=== PATIENT | female | born 1955 | race Caucasian/White ===

== ENCOUNTER 2016-09-05 20:50 | Emergency (ER) | payer BC ==
[2016-09-05] MEDS ORDERED: HYDROmorphone* 1 MG/ML 1 ML SYR IV ONE (21:03)
[2016-09-05] MEDS ORDERED: methylPREDNISolone SOD SUCC* 125 MG 2 ML VIAL IV ONE (21:03)
[2016-09-05] MEDS ORDERED: Albuterol/Ipratropium NEB.SOL* Albuterol 2.5 MG/Ipratropium 0.5 MG 3 ML INH ONE ×2 (21:08→22:22)
--- NOTE | 2016-09-05 22:23 | RAD ---
Indication: Shortness of breath. 2 views of the chest including dual energy PA views demonstrates no mediastinal shift. Heart is of normal size and configuration. Nodule in the right mid lung aguilar unchanged from April 24, 2005 and is consistent with a granuloma. IMPRESSION: Nodule right midlung field. This is unchanged from 2005. Lung aguilar are clear.
[2016-09-05] MEDS ORDERED: Clarithromycin TAB* 500 MG PO ONE (22:24)
[2016-09-05] MEDS ORDERED: Benzonatate CAP* 100 MG PO ONE (22:24)
[2016-09-06 00:28] VITALS: BP 158/80
--- NOTE | 2016-09-06 11:27 | ED ---
Charity Humphrey Michael, scribed for Ernesto Mead MD on 09/05/16 at 2104 . Respiratory - HPI Summary HPI Summary: 61 y/o female was BIBA to the ED presenting with a nonproductive cough that started one day ago. The cough is aggravated and alleviated by nothing. She also c/o SOB and denies fever. The pt was seen previously at [facility] on Thursday for a sinus infection and was prescribed Promethazine. At home she has no breathing treatments and the PMHx is significant for PNA and bronchitis. - History of Current Complaint Stated Complaint: COUGH Hx Obtained From: Patient, EMS, Medical Records Onset/Duration: Gradual Onset, Still Present Timing: Intermittent Episodes Lasting: Initial Severity: Moderate Current Severity: Moderate Character: Cough (Nonproductive), Dyspnea at Rest Sputum Amount: None Aggravating Factor(s): Nothing Alleviating Factor(s): Nothing Associated Signs and Symptoms: SOB - Allergy/Home Medications Allergies/Adverse Reactions: Allergies Allergy/AdvReac Type Severity Reaction Status Date / Time Hydrocodone [From Vicodin] Allergy Intermediate nausea/vomi Verified 09/05/16 20 :57 ting PMH/Surg Hx/FS Hx/Imm Hx Endocrine/Hematology History: Denies: Hx Anticoagulant Therapy, Hx Diabetes, Hx Thyroid Disease Cardiovascular History: Reports: Hx Hypertension Denies: Hx Congestive Heart Failure, Hx Deep Vein Thrombosis, Hx Myocardial Infarction, Hx Pacemaker/ICD Respiratory History: Reports: Hx Pneumonia, Other Respiratory Problems/ Disorders - bronchitis Denies: Hx Asthma, Hx Chronic Obstructive Pulmonary Disease (COPD), Hx Lung Cancer, Hx Pulmonary Embolism GI History: Denies: Hx Gall Bladder Disease, Hx Gastrointestinal Bleed, Hx Ulcer, Hx Urosepsis History: Denies: Hx Kidney Stones, Hx Renal Disease Neurological History: Denies: Hx Dementia, Hx Migraine, Hx Seizures, Hx Transient Ischemic Attacks (TIA) Psychiatric History: Denies: Hx Anxiety, Hx Depression, Hx Schizophrenia, Hx Bipolar Disorder - Surgical History Surgery Procedure, Year, and Place: TMJ surgery, lymphadenopathy, hysterectomy, orthopedic surgery to right arm Infectious Disease History: Denies: Hx Clostridium Difficile, Hx Hepatitis, Hx Human Immunodeficiency Virus (HIV), Hx of Known/Suspected MRSA, Hx Shingles, Hx Tuberculosis, Hx Known/ Suspected VRE, Hx Known/Suspected VRSA, History Other Infectious Disease - Family History Known Family History: Positive: Hypertension Negative: Cardiac Disease, Diabetes - Social History Occupation: Retired Lives: Alone Alcohol Use: None Substance Use Type: Reports: None Smoking Status (MU): Current Every Day Smoker Type: Cigarettes Amount Used/How Often: 1/2 ppd Review of Systems Negative: Fever Positive: Shortness Of Breath, Cough All Other Systems Reviewed And Are Negative: Yes Physical Exam Triage Information Reviewed: Yes Vital Signs On Initial Exam: Initial Vitals Temp Pulse Resp BP Pulse Ox 98.8 F 84 24 165/104 91 09/05/16 20:56 09/05/16 20:56 09/05/16 20:56 09/05/16 20:56 09/05/16 20:56 Vital Signs Reviewed: Yes Appearance: Positive: Well-Appearing, No Pain Distress Skin: Positive: Warm, Skin Color Reflects Adequate Perfusion, Dry Head/Face: Positive: Normal Head/Face Inspection Eyes: Positive: Normal ENT: Positive: Normal ENT inspection Neck: Positive: Supple, Nontender Respiratory/Lung Sounds: Positive: Clear to Auscultation, Wheezes - diffusely, Other - increased E/I Cardiovascular: Positive: RRR Abdomen Description: Positive: Nontender, Soft Bowel Sounds: Positive: Present Musculoskeletal: Positive: Normal Neurological: Positive: Normal Psychiatric: Positive: Affect/Mood Appropriate Diagnostics - Vital Signs Vital Signs Temp Pulse Resp BP Pulse Ox 09/06/16 00:01 101 158/80 92 09/06/16 00:00 99.1 F 98 91 09/05/16 23:47 115 90 09/05/16 23:03 76 97 09/05/16 22:28 84 159/100 94 09/05/16 22:00 82 99 09/05/16 21:57 82 20 94 09/05/16 20:56 98.8 F 84 24 165/104 91 - Laboratory Lab Statement: Any lab studies that have been ordered have been reviewed, and results considered in the medical decision making process. - Radiology CXR Xray Interpretation: Positive (See Comments) - Nodule right midlung field. This is unchanged from 2004. Lung aguilar are clear. Radiology Interpretation Completed By: Radiologist Disposition - Course Course Of Treatment: Jagdeep Ramirez presented to the ED with a cough and SOB. She is a smoker and had diffuse wheezing. Her CXR was negative and she improved some with a duoneb and solumedrol. However, she dropped her SPO2 a bit when ambulated therefore she is getting another neb and will be reevaluated. I foresee her being D/C's with antibiotics, steroids and cough medicine. - Diagnoses Provider Diagnoses: Bronchospasm with bronchitis, acute - Physician Notifications Discussed Care Of Patient With: Dr. Choe at change of shift. Discharge - Discharge Plan Condition: Guarded Disposition: HOME Prescriptions: Benzonatate CAP* [Tessalon 100 MG CAP*] 100 mg PO TID #15 cap Clarithromycin TAB* [Biaxin TAB*] 500 mg PO BID #20 tab Methylprednisolone [Medrol Dosepak 4 MG*] 4 mg PO .SEE EDIE INSTRUCTION #1 tab Patient Education Materials: Benzonatate (By mouth), Clarithromycin (By mouth) , Methylprednisolone (By mouth), Acute Cough (ED) Referrals: Howie Cabrales MD [Primary Care Provider] - Additional Instructions: Follow up with your primary care physician within 48 hours. Return to the Emergency Department for new or worsening symptoms. The documentation as recorded by the Charity cassidy Michael accurately reflects the service I personally performed and the decisions made by me, Ernesto Mead MD.
== END 2016-09-06 00:15 | disposition home or self-care (01) ==
LOC: ED 20:50
DX: J20.9 Acute bronchitis, unspecified (principal); R05 Cough; R06.00 Dyspnea, unspecified; F17.210 Nicotine dependence, cigarettes, uncomplicated
CPT/HCPCS: 71020; 94640; 94760; 96374; 96375; 99282; A9270-GY; J2930

== ENCOUNTER 2016-09-06 16:57 | Observation (INO) | payer BC ==
[2016-09-06] MEDS ORDERED: Albuterol/Ipratropium NEB.SOL* Albuterol 2.5 MG/Ipratropium 0.5 MG 3 ML INH ONE ×2 (18:14→20:54)
[2016-09-06] MEDS ORDERED: oxyCODONE/Acetamin 5/325 MG* TAB PO ONE ×2 (18:14→18:30)
[2016-09-06] MEDS ORDERED: DOXYcycline CAP(*) 100 MG PO ONE (18:15)
[2016-09-06] MEDS ORDERED: predniSONE TAB* 20 MG PO ONE (18:15)
[2016-09-06] MEDS ORDERED: NS 0.9% 1000 ML* 1,000 ML IV ONE (20:54)
--- NOTE | 2016-09-06 21:20 | RAD ---
INDICATION: Short of breath COMPARISON: September 05, 2016; CT chest April 24, 2005 TECHNIQUE: PA and lateral dual-energy views were obtained. FINDINGS: Bones/Soft Tissues: There are no acute bony findings. Cardiomediastinal: The cardiomediastinal silhouette is normal. Lungs: There are no infiltrates. There is a nodule in the right midlung field present dating back to 2004. Pleura: There are no pleural effusions. Other: None IMPRESSION: STABLE NODULE RIGHT MIDLUNG FIELD. NO ACUTE FINDINGS.
--- NOTE | 2016-09-06 22:11 | ED ---
Sally Humphrey Erika, scribed for eGri Marie MD on 09/06/16 at 1831 . Headache - HPI Summary HPI Summary: Patient is a 61-year-old female presenting to the ED with her daughter with a CC of headache. Patient reports that on 09/01/2016, she developed a sore throat. She then developed sinus pressure and a non-productive cough. She was seen at her PCP, and was given codeine and an OTC cough medication on 09/02. Last night, patient developed SOB with exertion, so called 911 and was brought to the ED. Patient was given 2 nebulizers in the ED, and was diagnosed with acute cough and prescribed biaxin, methylprednisolone, and tessalon. She states she was able to sleep well last night, but this morning developed a gradually worsening frontal headache. Her headaches typically improve with 600 mg ibuprofen, but today did not improve with 2 doses of 600 mg. Most recent dose was 12:00 today. Patient denies sinus pain now. She reports she does not have an inhaler. Hx HTN, GERD, hyperlipidemia. Pt denies Hx COPD and denies home O2. She denies FHx subarachnoid hemorrhage. Patient lives alone, is retired, and she smokes. Patient is followed by Dr. Cabrales. - History Of Current Complaint Chief Complaint: EDHeadache Stated Complaint: COUGHING,SOB,HEADACHE Time Seen by Provider: 09/06/16 17:43 Hx Obtained From: Patient Hx Last Menstrual Period: Hyst 30 years ago. Onset/Duration: Gradual Onset, Started hours ago, Still Present Initially Headache Was: Mild Currently Pain Is: Moderate Timing: Constant Character: Typical Headache Location of Headache: Frontal Allevating Factors: Nothing Associated Signs And Symptoms: Sinus Pressure - Allergies/Home Medications Allergies/Adverse Reactions: Allergies Allergy/AdvReac Type Severity Reaction Status Date / Time Hydrocodone [From Vicodin] Allergy Intermediate nausea/vomi Verified 09/06/16 21 :04 ting Home Medications: Home Medications Pantoprazole Sodium [Protonix] 40 mg PO BID 09/06/16 [History Confirmed 09/06/16 ] PMH/Surg Hx/FS Hx/Imm Hx Endocrine/Hematology History: Denies: Hx Anticoagulant Therapy, Hx Diabetes, Hx Thyroid Disease Cardiovascular History: Reports: Hx Hypercholesterolemia, Hx Hypertension Denies: Hx Congestive Heart Failure, Hx Deep Vein Thrombosis, Hx Myocardial Infarction, Hx Pacemaker/ICD Respiratory History: Reports: Hx Pneumonia, Other Respiratory Problems/ Disorders - bronchitis Denies: Hx Asthma, Hx Chronic Obstructive Pulmonary Disease (COPD), Hx Lung Cancer, Hx Pulmonary Embolism GI History: Reports: Hx Gastroesophageal Reflux Disease Denies: Hx Gall Bladder Disease, Hx Gastrointestinal Bleed, Hx Ulcer, Hx Urosepsis History: Denies: Hx Kidney Stones, Hx Renal Disease Neurological History: Denies: Hx Dementia, Hx Migraine, Hx Seizures, Hx Transient Ischemic Attacks (TIA) Psychiatric History: Denies: Hx Anxiety, Hx Depression, Hx Schizophrenia, Hx Bipolar Disorder - Surgical History Surgery Procedure, Year, and Place: TMJ surgery, lymphadenopathy, hysterectomy, orthopedic surgery to right arm Infectious Disease History: Denies: Hx Clostridium Difficile, Hx Hepatitis, Hx Human Immunodeficiency Virus (HIV), Hx of Known/Suspected MRSA, Hx Shingles, Hx Tuberculosis, Hx Known/ Suspected VRE, Hx Known/Suspected VRSA, History Other Infectious Disease, Traveled Outside the [place] in Last 30 Days - Family History Known Family History: Positive: Hypertension Negative: Cardiac Disease, Diabetes - Social History Occupation: Retired Lives: Alone Alcohol Use: None Hx Substance Use: No Substance Use Type: Reports: None Hx Tobacco Use: Yes Smoking Status (MU): Current Every Day Smoker Type: Cigarettes Amount Used/How Often: 1/2 ppd Review of Systems ENT: Other - sinus pressure - resolved Positive: Sore Throat Positive: Shortness Of Breath, Cough Positive: Headache All Other Systems Reviewed And Are Negative: Yes Physical Exam Triage Information Reviewed: Yes Vital Signs On Initial Exam: Initial Vitals Temp Pulse Resp BP Pulse Ox 98.3 F 118 22 178/103 93 09/06/16 17:06 09/06/16 17:06 09/06/16 17:06 09/06/16 17:06 09/06/16 17:06 Vital Signs Reviewed: Yes Appearance: Positive: Well-Appearing - non-toxic, No Pain Distress Skin: Positive: Warm, Skin Color Reflects Adequate Perfusion, Dry Eyes: Positive: EOMI, GEORGE ENT: Positive: TMs normal, Other - Red nares. Percussion tenderness frontal and maxillary sinuses Neck: Positive: Supple, Nontender, Other: - no meningismus Respiratory/Lung Sounds: Positive: Breath Sounds Present, Wheezes - expiratory. Negative: Rales, Rhonchi Cardiovascular: Positive: Tachycardia - at 118 bpm, Other - No gallops. Negative: Murmur, Rub Abdomen Description: Positive: Nontender, Soft, Other: - No rebound. Negative: Distended, Guarding Bowel Sounds: Positive: Present Musculoskeletal: Positive: Other - LUÍS. Negative: Edema Left, Edema Right Neurological: Positive: Sensory/Motor Intact, Alert, Oriented to Person Place, Time, Other - CN II-XII intact Psychiatric: Positive: Affect/Mood Appropriate Diagnostics - Vital Signs Vital Signs Temp Pulse Resp BP Pulse Ox 09/06/16 17:06 98.3 F 118 22 178/103 93 - Laboratory Lab Statement: Any lab studies that have been ordered have been reviewed, and results considered in the medical decision making process. - Radiology CXR Radiology Interpretation Completed By: Radiologist - IMPRESSION: STABLE NODULE RIGHT MIDLUNG FIELD. NO ACUTE FINDINGS. - EKG 20:58 Cardiac Rate: NL - at 83 bpm EKG Rhythm: Sinus Rhythm EKG Interpretation: No ST elevation. No Q waves. No PVCs Re-Evaluation - Re-Evaluation First Eval Re-Evaluation Time: 20:51 Comment: Pt was road tested with sats in low 80s. High blood pressure after road test. Clinical concern. Second Eval Re-Evaluation Time: 21:25 Comment: Patient refuses CT Brain and CT Sinuses Headache Course/Dx - Course Course Of Treatment: 61 yo female who comes in with LEUNG and sinus pain with elevated bp's and low 02 sats on ambulation that led to the decision to bring pt in as an obv - Diagnoses Provider Diagnoses: Sinusitis, Headache, COPD exacerbation - Physician Notifications Discussed Care Of Patient With: Dr. Vargas (hospitalist) at 21:50 - agrees to admit Discharge - Discharge Plan Condition: Stable Disposition: ADMITTED TO [facility] documentation as recorded by the Sally cassidy Erika accurately reflects the service I personally performed and the decisions made by me, Geri Marie MD.
[2016-09-06 22:17] LABS: Hematocrit 41 % (35-47); Hemoglobin 13.7 g/dl (12.0-16.0); Mean Corpuscular HGB Conc 34 g/dl (31-36); Mean Corpuscular Hemoglobin 31 pg (27-31); Mean Corpuscular Volume 92 fL (80-97); Mean Platelet Volume 9 um3 (7.4-10.4); Red Blood Count 4.42 10^6/ul (4.0-5.4); Red Cell Distribution Width 13 % (10.5-15); White Blood Count 18.2 10^3/ul (3.5-10.8)
[2016-09-06 22:21] LABS: Comments Flag Yes
[2016-09-06 22:22] LABS: Add Diff/Slide Review? Slide Review Added
[2016-09-06 22:30] LABS: ALT 19 U/L (7-52); Albumin 4.1 g/dL (3.2-5.2); Alkaline Phosphatase 75 U/L (34-104); BUN/Creatinine Ratio 12.3 (8-20); Blood Urea Nitrogen 10 mg/dL (6-24); CO2 Carbon Dioxide 26 mmol/L (22-32); Calcium 9.4 mg/dL (8.6-10.3); Chloride 91 mmol/L (101-111); EGFR African American 92.4 (>60); EGFR Non-African American 71.9 (>60); Globulin 3.5 g/dL (2-4); Glucose 184 mg/dL (70-100); Sodium 124 mmol/L (133-145); Total Protein 7.6 g/dL (6.4-8.9)
[2016-09-06 22:34] LABS: Troponin I 0.07 ng/mL (<0.04)
[2016-09-06] MEDS ORDERED: oxyCODONE/Acetamin 5/325 MG* TAB PO PRN (22:36)
[2016-09-06] MEDS ORDERED: Senna TAB PO PRN (22:36)
[2016-09-06] MEDS ORDERED: Al Hydrox/Mg Hydrox/Simet LIQ* 30 ML UDC PO PRN (22:36)
[2016-09-06] MEDS ORDERED: Docusate CAP* 100 MG PO PRN (22:36)
[2016-09-06] MEDS ORDERED: Albuterol 2.5 MG/3 ML NEB.SOL* (0.083%) INH PRN (22:40)
[2016-09-06] MEDS ORDERED: Albuterol HFA INHALER* 8 gm MDI INH PRN (22:40)
[2016-09-06] MEDS ORDERED: amLODIPine TAB* 5 MG PO ONE (22:42)
[2016-09-06] MEDS: Albuterol/Ipratropium NEB.SOL* Albuterol 2.5 MG/Ipratropium 0.5 MG 3 ML INH SCH (23:49)
[2016-09-07] MEDS: Lisinopril TAB* 10 MG PO SCH ×2 (00:18→07:30)
[2016-09-07] MEDS: Fluticasone NASAL SPRAY 50MCG* 16 gm SPRAY BTL BOTH NARES SCH ×2 (00:18→07:30)
[2016-09-07] MEDS: Omeprazole CAP* 20 MG PO SCH ×2 (00:18→08:51)
[2016-09-07] MEDS: Ondansetron INJ* 2 MG/ML VIAL IV PRN ×2 (00:19→08:14)
[2016-09-07] MEDS: Acetaminophen TAB* 325 MG PO PRN ×4 (00:48→16:27)
[2016-09-07] MEDS: Albuterol/Ipratropium NEB.SOL* Albuterol 2.5 MG/Ipratropium 0.5 MG 3 ML INH SCH ×3 (03:33→12:59)
[2016-09-07 03:43] LABS: Troponin I 0.06 ng/mL (<0.04)
[2016-09-07] MEDS: Heparin VIAL(*) 5000 UNITS/ML VIAL (FIVE THOUSAND) SUBCUT SCH ×2 (06:00→13:25)
[2016-09-07 06:08] LABS: Hematocrit 41 % (35-47); Hemoglobin 13.7 g/dl (12.0-16.0); Mean Corpuscular HGB Conc 34 g/dl (31-36); Mean Corpuscular Hemoglobin 31 pg (27-31); Mean Corpuscular Volume 93 fL (80-97); Mean Platelet Volume 9 um3 (7.4-10.4); Red Blood Count 4.37 10^6/ul (4.0-5.4); Red Cell Distribution Width 13 % (10.5-15)
[2016-09-07 06:25] LABS: BUN/Creatinine Ratio 14.6 (8-20); Calcium 9.4 mg/dL (8.6-10.3); EGFR African American 91.1 (>60); EGFR Non-African American 70.9 (>60); Potassium 4.4 mmol/L (3.5-5.0)
[2016-09-07] MEDS: Sucralfate TAB* 1 GM PO SCH ×3 (07:29→16:27)
--- NOTE | 2016-09-07 08:48 | HP ---
HISTORY AND PHYSICAL: DATE OF ADMISSION: 09/06/16 TIME OF EVALUATION: 2330 hours. PRIMARY CARE PHYSICIAN: Howie Cabrales MD. CHIEF COMPLAINT: Headache. HISTORY OF PRESENT ILLNESS: This is a 61-year-old female with a past medical history of hypertension and smoking, who presents to the emergency room with worsening headache. The patient states on the she developed sore throat and URI symptoms. She went to see her primary on the and she was prescribed codeine and cough syrup. Her respiratory symptoms progressed. Her coughing worsened. She went to the emergency room last night for dyspnea on exertion. She was given DuoNeb, steroids, Biaxin, and Tessalon Perles. This morning, she developed a frontal headache that worsen throughout the day and her dyspnea on exertion continued as well and as well her dry cough. No chest pain. She has had some nausea since being in the emergency room. No vomiting, no fevers, no rash, no weight changes, no abdominal pain, no diarrhea. She said her parents have been sick. No recent travel. She denies any use of inhalers in the past. She denies any history of wheezing in the past. Otherwise remaining review of systems are negative. In the emergency room, the patient had labs, imaging. She was given DuoNeb, doxycycline, prednisone 60, and referred to the hospitalist service for further evaluation. Otherwise remaining review of systems is negative. PAST MEDICAL HISTORY: 1. Hypertension. 2. GERD. 3. Hyperlipidemia. MEDICATIONS: 1. Protonix 40 mg p.o. b.i.d. 2. Sucralfate 1 g p.o. q.i.d. 3. Lisinopril 10 mg daily. ALLERGIES: HYDROCODONE, develops nausea and vomiting. FAMILY HISTORY: Both parents are alive and healthy. SOCIAL HISTORY: She lives alone. She is retired from working customer service at [employer]. She continues to smoke a half-pack per day for the past 40 years. No alcohol use or illicit drug use. She is independent of her ADLs. She has 2 children. Healthcare proxy is her daughter, Yeimi Zimmerman. CODE STATUS: Full code. REVIEW OF SYSTEMS: As mentioned in the HPI. PHYSICAL EXAMINATION GENERAL: In no acute distress. Mildly ill appearing. VITAL SIGNS: Temp 98.6, pulse rate 96, respiratory rate 18, oxygen saturation 94% on 2 L, and blood pressure 183/97. HEENT: Pupils are equal, reactive. Anicteric. Head normocephalic. Oropharynx : Mucous membranes are moist. She does have some posterior erythema. No exudate. NECK: Supple. No adenopathy. No nuchal rigidity. RESPIRATORY: Coarse rhonchorous breath sounds with bilateral expiratory wheezing and prolonged expiratory phase. CARDIAC: Regular rate and rhythm. No murmurs, rubs or gallops. ABDOMEN: Soft, nontender, and nondistended. EXTREMITIES: No clubbing, cyanosis, or edema; +2 DPs. NEUROLOGIC: Alert and oriented x3. No focal neurological deficits. DIAGNOSTIC STUDIES/LAB DATA: White count 18.2, hemoglobin 13.7, hematocrit 41 , and platelets 261. Sodium 124, potassium is pending, chloride 91, bicarb 26, BUN 10, creatinine 0.81, and glucose 194. Troponin is 0.07. Radiographic Data: EKG shows normal sinus rhythm. No significant changes. Chest x-ray: Stable nodule, right mid lung field. No acute findings. ASSESSMENT AND PLAN: This is a 61-year-old female with past medical history of hypertension and smoking history, who presents to the emergency room with headache, found to be hypoxic with ambulating, down to the 84, and dyspnea on exertion persists. The patient is being admitted for chronic obstructive pulmonary disease exacerbation. 1. Hypoxia: Assessment: This is secondary to chronic obstructive pulmonary disease exacerbation, most likely from sinusitis and upper respiratory infection. Her headache seems to be related to her sinuses. She does have a head CT and sinus CT ordered by the ER that will be followed up on. She was started on doxycycline. Plan: We will admit her to observation. Continue prednisone 40 mg daily. We will continue on DuoNebs, albuterol, and inhaler, and we will have Respiratory come in and do education for inhaler use. We will continue on the doxycycline and start her on Flonase. We will also check a flu swab. 2. Elevated troponin: Assessment: The patient has no chest pain and EKG is unremarkable. Could be demand ischemia from infectious causes. We will trend her troponin and keep her on telemetry. 3. Leukocytosis: The patient got Solu-Medrol yesterday in the emergency room. I suspect this is secondary to steroids. She is afebrile. Plan: We will repeat her labs in the morning. No indication for antibiotic at this time, no focal infection identified. 4. Hyperglycemia: Could be related to the steroid use. We will add on a hemoglobin A1c and check her glucose a.c. 5. Hypertension: The patient's blood pressures are elevated here, likely related to pain. We will give her a dose of amlodipine and start her on a lisinopril and follow closely. 6. Gastroesophageal reflux disease: Continue her on Protonix and sucralfate. 7. FEN: Place her on regular diet. 8. DVT prophylaxis: She is at high risk. Place her on heparin subcu t.i.d. 9. Code status: Full code. PATIENT TIME: Greater than 60 minutes was spent doing the history and physical , more than half the time was spent in direct patient contact. CC: Howie Cabrales MD. * [id number]/[facility]PS #: [id number] MTDD
[2016-09-07] MEDS ORDERED: DOXYcycline CAP(*) 100 MG PO SCH (09:00)
[2016-09-07] MEDS ORDERED: predniSONE TAB* 20 MG PO SCH (09:00)
[2016-09-07] MEDS ORDERED: GuaiFENesin DM* 5 ML UDC PO PRN (13:18)
[2016-09-07] MEDS ORDERED: guaiFENesin LIQ* 100 MG/5 ML UDC ONE (13:22)
[2016-09-07] MEDS ORDERED: Spiriva Inhaler DEVICE* 1 EACH DEVICE INH ONE (14:00)
[2016-09-07] MEDS ORDERED: Ibuprofen TAB* 800 MG PO PRN (14:21)
[2016-09-07 15:23] VITALS: BP 152/75
--- NOTE | 2016-09-07 17:18 | PN ---
Hospitalist Progress Note . HOSPITALIST DISCHARGE NOTE: See dc instructions and summary by me. Patient stable for dc dc instructions reviewed with the patient at the bedside. DC patient home today.
[2016-09-07] MEDS ORDERED: Mometasone/Formoter 200/5 MDI INH SCH (21:00)
--- NOTE | 2016-09-08 05:09 | DS ---
DISCHARGE SUMMARY: DATE OF ADMISSION: 09/06/16 DATE OF DISCHARGE: 09/07/16 STATUS DURING HOSPITALIZATION: Observation. PRIMARY CARE PHYSICIAN: Dr. Howie Cabrales. PRINCIPAL DISCHARGE DIAGNOSIS: Likely viral syndrome with headache, upper respiratory symptoms including sinusitis, viral bronchitis, and resultant chronic obstructive pulmonary disease exacerbation with mild hypoxia - now resolved. SECONDARY DIAGNOSES: 1. Hypertension. 2. Gastroesophageal reflux disease. 3. Hyperlipidemia. 4. Ongoing smoking. DISCHARGE MEDICATION REGIMEN: 1. Continue Protonix 40 mg by mouth twice daily. 2. Continue sucralfate 1 g by mouth 4 times daily. 3. Continue lisinopril 10 mg by mouth daily. 4. Take Z-Ralph as prescribed from previous provider. 5. Take Medrol Dosepak as previously prescribed from previous provider. 6. Recommend naiy-obo-iirrjpp Tylenol up to 1000 mg by mouth every 6 hours p.r.n. pain/fever/headache. 7. Recommend tmjg-omq-gpazoia ibuprofen up to 800 mg by mouth every 6 hours p.r.n. pain/fever (for 1 day, then stop). 8. Continue Tessalon Perles as previously prescribed 100 mg by mouth 3 times daily. 9. Utilize ProAir inhaler that was given to the patient by the hospital. 10. Wvms-ojr-hacmubz Robitussin DM 10 mL by mouth every 6 hours p.r.n. cough. 11. Recommend OTC Sudafed for sinus headache - take as directed by OTC formulation. I recommend the patient not start doxycycline nor prednisone as she was previously prescribed Z-Ralph and Medrol Dosepak and already has those medications in her possession. HISTORY OF PRESENT ILLNESS AND HOSPITAL COURSE: Please see the H and P by Dr. Annamaria Vargas on 09/06/16. In brief, Ms. Ramirez is a 61-year-old female with a history of hypertension and ongoing tobacco use who came to the emergency room with a worsening headache. Earlier in the week, she had a sore throat and URI symptoms and she saw her primary on the and was prescribed codeine and cough syrup. Her respiratory symptoms progressed and her coughing worsened and she came to the emergency room last night with dyspnea on exertion and received DuoNeb, steroid, Biaxin, and Tessalon Perles. I believe these were actually faxed to her pharmacy and she filled them and had a hard time with the Biaxin, but did not actually start the steroids, but did start the Tessalon Perles. There was no chest pain. She was discharged home. She came back to the hospital for ongoing symptoms and received doxycycline and prednisone. I am not sure, but I called her pharmacy and there was prescription for doxycycline and prednisone that was separate from the Biaxin and the Medrol Dosepak. I had a discussion with the patient who has been improving in the hospital that she not fill the prednisone and the doxycycline and that she start the Medrol Dosepak and the Z-Ralph again, she did start the Biaxin and apparently had an upset stomach to it, but she did not start the Z-Ralph nor did she start the Medrol Dosepak in the hospital. She has done well in response to receiving intravenous methylprednisolone and I think it would be worthwhile for her to have steroids, but I do not know that she needs necessarily high-dose prednisone. I did recommend smoking cessation to the patient and she said she is going to consider trying to quit. Alternatively, I recommended Tylenol and ibuprofen with the latter being used for only a short period of time if she is going to start a steroid taper. She is on a PPI - Protonix and she takes sucralfate before. She does have a history of GERD, but she denies any history of ulcer. The patient is doing better. She does have an intermittent headache, but it is mild at this point. It is well controlled with the Tylenol and ibuprofen. She is tolerating food and liquid. She is not working and can remain generally at rest at home as she recovers from this likely viral upper respiratory infection with sinusitis and reactive airways. The patient should follow up with Dr. Cabrales to establish her stability this week. Of course, if she becomes concerned, she can come back to the emergency room and be reevaluated, but I think she should give her initial prescriptions a try and treat this likely viral infection conservatively. TIME SPENT: Total time taken to discharge Ms. Ramirez was 60 minutes, greater than half that time spent doing medication research and reconciling her multiple medication prescriptions during several episodes this week. CONDITION ON DISCHARGE: Stable. CC: Dr. Howie Cabrales* [id number]/[facility] #: [id number] MTDD
[2016-09-08] MEDS ORDERED: Tiotropium CAP.INH* CAP.INH/18 MCG INH SCH (09:00)
== END 2016-09-07 18:11 | disposition home or self-care (01) ==
LOC: ED 16:57 → MEDTELE 22:36
PROVIDERS: ADMIT Pediatrics; ATTEND Internal Medicine
DX: J44.1 Chronic obstructive pulmonary disease with (acute) exacerbation (principal); J20.9 Acute bronchitis, unspecified; J44.0 Chronic obstructive pulmonary disease with (acute) lower respiratory infection; R09.02 Hypoxemia; R74.8 Abnormal levels of other serum enzymes; D72.829 Elevated white blood cell count, unspecified; I10 Essential (primary) hypertension; K21.9 Gastro-esophageal reflux disease without esophagitis; E78.5 Hyperlipidemia, unspecified; F17.210 Nicotine dependence, cigarettes, uncomplicated; Z88.5 Allergy status to narcotic agent; Z79.899 Other long term (current) drug therapy
CPT/HCPCS: 36415; 71020; 80048; 80053; 83036; 84484; 85025; 87502; 93005; 94640; 94664; 94760; 96372; 96374; 99285; 99406; A9270-GY; G0378; J1644; J2405; J7512

== ENCOUNTER 2017-01-18 09:54 | Emergency (ER) | payer BC ==
[2017-01-18] MEDS ORDERED: NS 0.9% 1000 ML* 1,000 ML IV SCH (11:00)
[2017-01-18 11:34] LABS: Hematocrit 41 % (35-47); Hemoglobin 13.9 g/dl (12.0-16.0); Mean Corpuscular HGB Conc 34 g/dl (31-36); Mean Corpuscular Hemoglobin 32 pg (27-31); Mean Corpuscular Volume 94 fL (80-97); Mean Platelet Volume 9 um3 (7.4-10.4); Red Cell Distribution Width 13 % (10.5-15); White Blood Count 9.6 10^3/ul (3.5-10.8)
--- NOTE | 2017-01-18 11:35 | RAD ---
INDICATION: Headaches COMPARISON: None TECHNIQUE: Noncontrast axial source images were acquired from the skull base to the vertex. FINDINGS: Ventricles/sulci: The ventricles and cisterns are normal in size and configuration for age. Brain parenchyma: There is no focal parenchymal finding, evidence of intracranial mass, or intracranial mass effect. Intracranial hemorrhage:None. Extra-axial spaces: There are no abnormal extra axial fluid collections or evidence of extra-axial mass. Calvarium: There is no calvarial fracture or other calvarial abnormality. Scalp: There is no evidence of scalp or extracalvarial soft tissue abnormality. Paranasal sinuses/mastoid: The paranasal sinuses and mastoid air cells are clear. Other: None. IMPRESSION: NEGATIVE EXAMINATION
[2017-01-18 11:39] LABS: Urine Bacteria Absent (Absent); Urine Bilirubin Negative (Negative); Urine Glucose Negative (Negative); Urine Nitrite Negative (Negative)
--- NOTE | 2017-01-18 11:40 | RAD ---
INDICATION: Weakness COMPARISON: Chest x-ray September 06, 2016; chest x-ray August 09, 2004 TECHNIQUE: An AP portable view obtained at 1105 hours is submitted. FINDINGS: Bones/Soft Tissues: There are no acute bony findings. Cardiomediastinal: The cardiomediastinal silhouette is normal. Lungs: There are no infiltrates. There is a stable right lung nodule. This representing known finding. Pleura: There are no pleural effusions. Other: None IMPRESSION: NO ACUTE FINDINGS. STABLE RIGHT LUNG NODULE
[2017-01-18 11:48] LABS: Albumin 4.5 g/dL (3.2-5.2); C Reactive Protein 3.8 mg/L (< 5.00); EGFR African American 79.8 (>60); EGFR Non-African American 62.1 (>60); Globulin 3.3 g/dL (2-4); Magnesium 2.1 mg/dL (1.9-2.7); Potassium 4.7 mmol/L (3.5-5.0); Total Bilirubin 0.4 mg/dL (0.2-1.0); Total Protein 7.8 g/dL (6.4-8.9)
[2017-01-18 12:03] VITALS: BP 134/78
[2017-01-18] MEDS ORDERED: Acetaminophen TAB* 325 MG PO ONE (12:16)
--- NOTE | 2017-01-18 12:17 | ED ---
Natalia Humphrey Edward, scribed for Portillo Landa MD on 01/18/17 at 1048 . Neurological HPI - HPI Summary HPI Summary: 61 y/o female presents to ED c/o acute on chronic L arm weakness and bilateral leg heaviness. The L arm weakness started at around 08:00 this morning and the legs felt heavy shortly thereafter. She usually has less severe, chronic L arm weakness when she wakes up in the mornings. In the ED course, the L arm is feeling slightly less weak but is now feeling tingly. Associated sx: intermittent LEUNG in the ED course @ frontal region lasting for a couple of minutes, mild nausea, muscle spasms in L leg, edema in the L fingers. Denies slurred speech, vision problems, neck pain, CP, SOB. PMHx HTN, HLD and GERD. - History of Current Complaint Chief Complaint: EDNeurologicalDeficit Stated Complaint: WEAKNESS Hx Obtained From: Patient Hx Last Menstrual Period: Hyst 30 years ago. Onset/Duration: Gradual Onset, Still Present Headache Location: Frontal Pain Intensity: 0 Associated Signs and Symptoms: Positive: Headache, Weakness - Weakness turned tingling inL arm and heaviness in bilateral legs, Nausea/Vomiting. Negative: Impaired Speech, Neck Pain/Stiffness, Chest Pain, Shortness of Breath - Additional Pertinent History Primary Care Physician: [id number] - Allergy/Home Medications Allergies/Adverse Reactions: Allergies Allergy/AdvReac Type Severity Reaction Status Date / Time No Known Drug Allergy Allergy See Comment Verified 01/18/17 11:09 Hydrocodone [From Vicodin] AdvReac Intermediate nausea/vomi Verified 01/18/17 11 :08 ting PMH/Surg Hx/FS Hx/Imm Hx Previously Healthy: No Endocrine/Hematology History: Denies: Hx Anticoagulant Therapy, Hx Diabetes, Hx Thyroid Disease Cardiovascular History: Reports: Hx Hypercholesterolemia, Hx Hypertension Denies: Hx Congestive Heart Failure, Hx Deep Vein Thrombosis, Hx Myocardial Infarction, Hx Pacemaker/ICD Respiratory History: Reports: Hx Pneumonia, Other Respiratory Problems/ Disorders - bronchitis Denies: Hx Asthma, Hx Chronic Obstructive Pulmonary Disease (COPD), Hx Lung Cancer, Hx Pulmonary Embolism GI History: Reports: Hx Gastroesophageal Reflux Disease Denies: Hx Gall Bladder Disease, Hx Gastrointestinal Bleed, Hx Ulcer, Hx Urosepsis History: Denies: Hx Kidney Stones, Hx Renal Disease Sensory History: Reports: Hx Contacts or Glasses Denies: Hx Hearing Aid Opthamlomology History: Reports: Hx Contacts or Glasses Neurological History: Reports: Hx Migraine Denies: Hx Dementia, Hx Seizures, Hx Transient Ischemic Attacks (TIA) Psychiatric History: Denies: Hx Anxiety, Hx Depression, Hx Schizophrenia, Hx Bipolar Disorder - Surgical History Surgery Procedure, Year, and Place: TMJ surgery, lymphadenopathy, hysterectomy, orthopedic surgery to right arm Infectious Disease History: No Infectious Disease History: Denies: Hx Clostridium Difficile, Hx Hepatitis, Hx Human Immunodeficiency Virus (HIV), Hx of Known/Suspected MRSA, Hx Shingles, Hx Tuberculosis, Hx Known/ Suspected VRE, Hx Known/Suspected VRSA, History Other Infectious Disease, Traveled Outside the [place] in Last 30 Days - Family History Known Family History: Positive: Hypertension Negative: Cardiac Disease, Diabetes - Social History Occupation: Retired Lives: Alone Alcohol Use: None Hx Substance Use: No Substance Use Type: Reports: None Hx Tobacco Use: Yes Smoking Status (MU): Current Every Day Smoker Type: Cigarettes Amount Used/How Often: 1/2 ppd Review of Systems Constitutional: Negative Eyes: Negative ENT: Negative Cardiovascular: Negative Respiratory: Negative Positive: Nausea Genitourinary: Negative Musculoskeletal: Other - Muscle spasms in legs Positive: Edema - L fingers Skin: Negative Positive: Headache, Weakness - L arm and heaviness in biltaeral legs, Numbness - tingling in L arm Psychological: Normal All Other Systems Reviewed And Are Negative: Yes Physical Exam Triage Information Reviewed: Yes Vital Signs On Initial Exam: Initial Vitals Temp Pulse Resp BP Pulse Ox 97.9 F 89 18 150/85 92 01/18/17 10:02 01/18/17 10:02 01/18/17 10:02 01/18/17 10:02 01/18/17 10:02 Vital Signs Reviewed: Yes Appearance: Positive: Well-Appearing, No Pain Distress Skin: Positive: Warm, Skin Color Reflects Adequate Perfusion, Dry Head/Face: Positive: Normal Head/Face Inspection Eyes: Positive: EOMI, GEORGE ENT: Positive: Normal ENT inspection Neck: Positive: Supple, Nontender Respiratory/Lung Sounds: Positive: Clear to Auscultation, Breath Sounds Present Cardiovascular: Positive: RRR Abdomen Description: Positive: Nontender, Soft Bowel Sounds: Positive: Present Musculoskeletal: Positive: Normal, Strength/ROM Intact Neurological: Positive: Normal, Sensory/Motor Intact, Alert, Oriented to Person Place, Time Psychiatric: Positive: Normal, Affect/Mood Appropriate - Sarah Coma Scale Coma Scale Total: 15 Diagnostics - Vital Signs Vital Signs Temp Pulse Resp BP Pulse Ox 01/18/17 10:09 11 135/76 01/18/17 10:02 97.9 F 89 18 150/85 92 - Laboratory Lab Results: Lab Results 01/18/17 01/18/17 01/18/17 Range/Units 10:10 11:23 11:23 WBC 9.6 (3.5-10.8) 10^3/ul RBC 4.40 (4.0-5.4) 10^6/ul Hgb 13.9 (12.0-16.0) g/dl Hct 41 (35-47) % MCV 94 (80-97) fL MCH 32 H (27-31) pg MCHC 34 (31-36) g/dl RDW 13 (10.5-15) % Plt Count 293 (150-450) 10^3/ul MPV 9 (7.4-10.4) um3 Neut % (Auto) 67.9 (38-83) % Lymph % (Auto) 22.4 L (25-47) % Jennings % (Auto) 8.1 (1-9) % Eos % (Auto) 0.7 (0-6) % Baso % (Auto) 0.9 (0-2) % Absolute Neuts (auto) 6.5 (1.5-7.7) 10^3/ul Absolute Lymphs (auto) 2.1 (1.0-4.8) 10^3/ul Absolute Monos (auto) 0.8 (0-0.8) 10^3/ul Absolute Eos (auto) 0.1 (0-0.6) 10^3/ul Absolute Basos (auto) 0.1 (0-0.2) 10^3/ul Absolute Nucleated RBC 0.01 10^3/ul Nucleated RBC % 0.1 INR (Anticoag Therapy) 0.91 (0.89-1.11) APTT 30.8 (26.0-36.3) seconds Sodium (133-145) mmol/L Potassium (3.5-5.0) mmol/L Chloride (101-111) mmol/L Carbon Dioxide (22-32) mmol/L Anion Gap (2-11) mmol/L BUN (6-24) mg/dL Creatinine (0.51-0.95) mg/dL Est GFR ( Amer) (>60) Est GFR (Non-Af Amer) (>60) BUN/Creatinine Ratio (8-20) Glucose (70-100) mg/dL Lactic Acid (0.5-2.0) mmol/L Calcium (8.6-10.3) mg/dL Magnesium (1.9-2.7) mg/dL Total Bilirubin (0.2-1.0) mg/dL AST (13-39) U/L ALT (7-52) U/L Alkaline Phosphatase (34-104) U/L Troponin I (<0.04) ng/mL C-Reactive Protein (< 5.00) mg/L Total Protein (6.4-8.9) g/dL Albumin (3.2-5.2) g/dL Globulin (2-4) g/dL Albumin/Globulin Ratio (1-3) TSH Urine Color Yellow Urine Appearance Clear Urine pH 7.0 (5-9) Ur Specific [place] 1.005 L (1.010-1.030) Urine Protein Negative (Negative) Urine Ketones Negative (Negative) Urine Blood Negative (Negative) Urine Nitrate Negative (Negative) Urine Bilirubin Negative (Negative) Urine Urobilinogen Negative (Negative) Ur Leukocyte Esterase Trace H (Negative) Urine WBC (Auto) Trace(0-5/hpf) (Absent) Urine RBC (Auto) Trace(0-2/hpf) (Absent) Ur Squamous Epith Cells Present H (Absent) Urine Bacteria Absent (Absent) Urine Glucose Negative (Negative) 01/18/17 01/18/17 Range/Units 11:23 11:23 WBC (3.5-10.8) 10^3/ul RBC (4.0-5.4) 10^6/ul Hgb (12.0-16.0) g/dl Hct (35-47) % MCV (80-97) fL MCH (27-31) pg MCHC (31-36) g/dl RDW (10.5-15) % Plt Count (150-450) 10^3/ul MPV (7.4-10.4) um3 Neut % (Auto) (38-83) % Lymph % (Auto) (25-47) % Jennings % (Auto) (1-9) % Eos % (Auto) (0-6) % Baso % (Auto) (0-2) % Absolute Neuts (auto) (1.5-7.7) 10^3/ul Absolute Lymphs (auto) (1.0-4.8) 10^3/ul Absolute Monos (auto) (0-0.8) 10^3/ul Absolute Eos (auto) (0-0.6) 10^3/ul Absolute Basos (auto) (0-0.2) 10^3/ul Absolute Nucleated RBC 10^3/ul Nucleated RBC % INR (Anticoag Therapy) (0.89-1.11) APTT (26.0-36.3) seconds Sodium 131 L (133-145) mmol/L Potassium 4.7 (3.5-5.0) mmol/L Chloride 98 L (101-111) mmol/L Carbon Dioxide 30 (22-32) mmol/L Anion Gap 3 (2-11) mmol/L BUN 12 (6-24) mg/dL Creatinine 0.92 (0.51-0.95) mg/dL Est GFR ( Amer) 79.8 (>60) Est GFR (Non-Af Amer) 62.1 (>60) BUN/Creatinine Ratio 13.0 (8-20) Glucose 87 (70-100) mg/dL Lactic Acid 0.9 (0.5-2.0) mmol/L Calcium 10.0 (8.6-10.3) mg/dL Magnesium 2.1 (1.9-2.7) mg/dL Total Bilirubin 0.40 (0.2-1.0) mg/dL AST 21 (13-39) U/L ALT 28 (7-52) U/L Alkaline Phosphatase 89 (34-104) U/L Troponin I 0.00 (<0.04) ng/mL C-Reactive Protein 3.80 (< 5.00) mg/L Total Protein 7.8 (6.4-8.9) g/dL Albumin 4.5 (3.2-5.2) g/dL Globulin 3.3 (2-4) g/dL Albumin/Globulin Ratio 1.4 (1-3) TSH Pending Urine Color Urine Appearance Urine pH (5-9) Ur Specific [place] (1.010-1.030) Urine Protein (Negative) Urine Ketones (Negative) Urine Blood (Negative) Urine Nitrate (Negative) Urine Bilirubin (Negative) Urine Urobilinogen (Negative) Ur Leukocyte Esterase (Negative) Urine WBC (Auto) (Absent) Urine RBC (Auto) (Absent) Ur Squamous Epith Cells (Absent) Urine Bacteria (Absent) Urine Glucose (Negative) Result Diagrams: 01/18/17 11:23 01/18/17 11:23 Lab Statement: Any lab studies that have been ordered have been reviewed, and results considered in the medical decision making process. - Radiology CXR Xray Interpretation: No Acute Changes - NO ACUTE FINDINGS. STABLE RIGHT LUNG NODULE Radiology Interpretation Completed By: Radiologist - CT BRAIN CT CT Interpretation: No Acute Changes - NEGATIVE EXAMINATION CT Interpretation Completed By: Radiologist - EKG 1 EKG Rhythm: Sinus Rhythm - @ 75 ST Segment: Normal Ectopy: None EKG Interpretation: 11:39 Course/Dx - Course Course Of Treatment: DR SADLER, NEUROLOGY, SAW PATIENT IN THE EMERGENCY DEPARTMENT. NO EVIDENCE OF CVA. PATIENT WILL F/U WITH PMD AND NEUROLOGY OUT PATIENT. SHE WILL RETURN TO ED IF WORSE. NO CRITICAL CARE TIME. - Diagnoses Provider Diagnoses: Bilateral leg paresthesia, Paresthesia of left arm - Physician Notifications Discussed Care Of Patient With: Hipolito Sadler Time Discussed With Above Provider: 11:00 Instructed by Provider To: MD Will See In ED Discharge - Discharge Plan Condition: Stable Disposition: HOME Patient Education Materials: Paresthesia (ED) Referrals: Howie Cabrales MD [Primary Care Provider] - [facility] [Provider Group] Additional Instructions: FOLLOW UP WITH YOUR DOCTOR AND NEUROLOGY, DR SADLER. RETURN TO THE EMERGENCY DEPARTMENT FOR ANY WORSENING OF YOUR CONDITION; WEAKNESS , NUMBNESS, DIFFICULTY WITH SPEECH OR VISION OR QUESTIONS OR CONCERNS. The documentation as recorded by the Natalia cassidy Edward accurately reflects the service I personally performed and the decisions made by me, Portillo Landa MD.
[2017-01-18 12:46] LABS: TSH (Thyroid Stimulating Horm) 1.46 mcIU/mL (0.34-5.60)
--- NOTE | 2017-01-18 20:01 | CONS ---
CONSULTATION REPORT: DATE OF CONSULT: 01/18/17 LOCATION: She is currently in the emergency room. CONSULTING PHYSICIAN: Dr. Portillo Landa REASON FOR CONSULTATION: Left arm heaviness and bilateral lower extremity heaviness. HISTORY OF PRESENT ILLNESS: Ms. Ramirez is a 61-year-old female who has a history of migraine headaches dating back many years, headache free for years. She also has a history of hyperlipidemia, hypertension. No prior history of strokes or heart attacks. She does take medications for her blood pressure. She was in her usual state of health when at about 8 o'clock this morning she developed left arm heaviness. No pain. At that time, she denied any chest pain , shortness of breath, dyspnea on exertion. She had no jaw claudication or pain. The arm heaviness was described as nonpainful. She states that there was some tingling, it felt like when her arm "goes to sleep." She has had these episodes in the past for the last several months which come and go and generally resolve. She states that this did not resolve as quickly and is persistent. She also developed lower extremity heaviness in both legs, which she also states she has had in the past, but generally resolves quickly. The symptoms came on suddenly, involved her entire leg. She denied any numbness or tingling in her legs. She notes no bladder or bowel problem. She has had no neck pain or low back pain. These symptoms have persisted and she came to the ER. CT of the head done was negative for any acute events. She denies any recent falls or head trauma. She denies any recent infections, fevers, chills, night sweats. She has otherwise been in her usual state of health. She did stop smoking about 4 months ago. She denies any drinking or drug use. PAST MEDICAL HISTORY: As above. FAMILY HISTORY: Noncontributory. SOCIAL HISTORY: Stopped tobacco about 4 months ago. No alcohol or drug use. REVIEW OF SYSTEMS: 14-organ systems was as above otherwise negative. She denies any fatigue, fevers, chills, night sweats. HEENT: No recent infection, sore throats, cough. Neck: No neck pain or swelling. Chest: No cough, shortness of breath, dyspnea on exertion, hemoptysis. Cardiovascular: No chest pain. No edema. No jaw claudication. No palpitations. Abdomen: No nausea, vomiting, diarrhea, constipation, hematochezia, or hematemesis. : No dysuria, frequency, urgency. Musculoskeletal: As noted above. Neuro: As noted above. Endocrine: No fatigue, weight changes, hot or cold intolerance. Skin: No lesions, tick bites, or rashes. Extremities: No swelling, erythema. She has had no incontinence fecal or bladder. Otherwise, her examination was negative. PHYSICAL EXAMINATION: Vital signs are stable. Pulse in the 70s, respiration rate of 12, blood pressure is in 160/80s during my examination. General: She is a well- nourished, well-developed female in no acute distress. She is sitting in her hospital bed, pleasant, well dressed, well groomed. HEENT: She is normocephalic, atraumatic. Sclerae anicteric. Mucous membranes are moist. Oropharynx is clear. Nares are patent. Neck: Supple. No thyromegaly. No carotid bruits. No meningismus. Chest: Clear to auscultation bilaterally. Cardiovascular: Regular rate and rhythm. No murmurs. Abdomen: Nontender, nondistended. Extremities: No clubbing, cyanosis, or edema. Skin: Warm and dry without lesions or rashes. Neurologic Exam: She is awake, alert, and oriented x3. Her speech is fluent. There is no dysarthria. Her cranial nerves , she has full field of vision. Extraocular muscles are intact. Pupils are equal, round, and reactive to light. Face is symmetric. No sensory loss. Eyebrow raise and frown and smile are both normal. Sense of hearing is intact. No nystagmus. Sternocleidomastoid and shoulder shrug are both normal. Palate elevates symmetrically. There is no asymmetry posteriorly. Tongue is midline. Motor Exam: She has good tone and bulk, generally 5/5 throughout there is no drift in the upper or lower extremities. Sensation is intact to light touch, pinprick, proprioception and vibration throughout. She notes "heaviness" in her arms and legs, but no sensory changes. Currently, she is having no numbness or tingling in her left upper extremity. [id number] and rapid alternating movements are intact without tremor or dysdiadochokinesia. No evidence of ataxia. DTRs are symmetric in the upper and lower extremities, equivocal Babinski. Gait, she is able to stand, Romberg is negative, slightly wide based, but able to ambulate. Her Tinel's test was negative bilaterally. DIAGNOSTIC STUDIES/LAB DATA: Lab work; no current labs available. CT scan as noted above. ASSESSMENT AND PLAN: Ms. Ramirez is a 61-year-old female who presents to the hospital with acute onset of left upper extremity "heaviness." She also notes lower extremity heaviness. She noted some numbness and tingling in her left arm , but it is resolved and currently she just feels heavy. She also notes some mild headache, which is now resolved, not migrainous in nature. She denies any chest pain, shortness of breath, jaw claudication. She denies any neck pain. She denies any bladder or bowel changes. She notes no recent infections, rashes. No muscle aches. Otherwise, she has been in her usual state of health. She notes that she has had these symptoms for several months off and on and her CT scan was negative. At this point, my concern for any underlying cardiovascular or neurologic acute event is extremely low. The presentation and her symptoms are not consistent with an underlying stroke. She shows no evidence of a myopathy. At this point on examination, her strength is good throughout. She is not tender to palpation. She shows no evidence of any neuropathy at this point. On examination the etiology of her symptom is somewhat unclear, but I would recommend followup with a neurologist as an outpatient. She may benefit from a nerve conduction study in the near future, but this can be determined as an outpatient. Thank you for the opportunity to participate in her care. [id number]/[facility] #: [id number] ANA
== END 2017-01-18 12:29 | disposition home or self-care (01) ==
LOC: ED 09:54
DX: R53.1 Weakness (principal); R51 Headache; F17.210 Nicotine dependence, cigarettes, uncomplicated; R20.9 Unspecified disturbances of skin sensation
CPT/HCPCS: 36415; 70450; 71010; 80053; 81003; 81015; 83605; 83735; 84443; 84484; 85025; 85610; 85730; 86140; 87086; 93005; 96360; 99283; A9270-GY

== ENCOUNTER 2017-12-17 08:31 | Observation (INO) | payer BC ==
--- NOTE | 2017-12-17 09:17 | ED ---
Headache - HPI Summary HPI Summary: This is ange Amezcua documenting for attending Dr. Christian M.D. Pt is a 62 y/o F BIBA w/ c/o LEUNG onsetting yesterday morning. LEUNG is noted to be across front of head and pain from LEUNG is rated 10/10 in the room. Nothing noted to aggravate/alleviate Sx. She reports that she feels aches all over her body, is nauseous, is experiencing back pain, has some cough, and does not have the energy to stand up. She notes a Hx of migraines but states current LEUNG is not like previous migraine episodes and pain is comparatively worse. Pt denies neck stiffness, neck pain, SOB, fever, and heart palpitations. Per triage, vomiting and diarrhea are denied as well. She reports her appetite was fine yesterday but notes she did not eat today. Pt notes Hx of HTN, denies CAD and diabetes. Vicodin allergy is reported. Pt is not on blood thinners. Allergies noted. - History Of Current Complaint Chief Complaint: EDGeneral Stated Complaint: HEADACHE Time Seen by Provider: 12/17/17 09:03 Hx Obtained From: Patient Hx Last Menstrual Period: Hyst 30 years ago. Onset/Duration: Started days ago - yesterday morning Currently Pain Is: Current Pain Scale(0-10)= - 10/10, Severe Timing: Constant Location of Headache: Frontal - described as across forehead Aggravating Factor: Nothing Allevating Factors: Nothing Associated Signs And Symptoms: Nausea, Other (Noted In Comments) - NEGATIVE: chest pain, SOB, fever, vomiting, diarrhea, neck pain, neck stiffness, heart palpitations POSITIVE: nausea, cough, back pain, "achiness", fatigue - Allergies/Home Medications Allergies/Adverse Reactions: Allergies Allergy/AdvReac Type Severity Reaction Status Date / Time hydrocodone AdvReac GI Upset Verified 12/17/17 12:16 Home Medications: Home Medications Ibuprofen TAB* [Motrin TAB* 800 MG] 400 - 800 mg PO Q6HR PRN 12/17/17 [History Confirmed 12/17/17] PMH/Surg Hx/FS Hx/Imm Hx Endocrine/Hematology History: Denies: Hx Anticoagulant Therapy, Hx Diabetes, Hx Thyroid Disease Cardiovascular History: Reports: Hx Hypercholesterolemia, Hx Hypertension Denies: Hx Congestive Heart Failure, Hx Deep Vein Thrombosis, Hx Myocardial Infarction, Hx Pacemaker/ICD Respiratory History: Reports: Hx Pneumonia, Other Respiratory Problems/ Disorders - bronchitis Denies: Hx Asthma, Hx Chronic Obstructive Pulmonary Disease (COPD), Hx Lung Cancer, Hx Pulmonary Embolism GI History: Reports: Hx Gastroesophageal Reflux Disease Denies: Hx Gall Bladder Disease, Hx Gastrointestinal Bleed, Hx Ulcer, Hx Urosepsis History: Denies: Hx Kidney Stones, Hx Renal Disease Sensory History: Reports: Hx Contacts or Glasses Denies: Hx Hearing Aid Opthamlomology History: Reports: Hx Contacts or Glasses Neurological History: Reports: Hx Migraine Denies: Hx Dementia, Hx Seizures, Hx Transient Ischemic Attacks (TIA) Psychiatric History: Denies: Hx Anxiety, Hx Depression, Hx Schizophrenia, Hx Bipolar Disorder - Surgical History Surgery Procedure, Year, and Place: TMJ surgery, lymphadenopathy, hysterectomy, orthopedic surgery to right arm Infectious Disease History: No Infectious Disease History: Denies: Hx Clostridium Difficile, Hx Hepatitis, Hx Human Immunodeficiency Virus (HIV), Hx of Known/Suspected MRSA, Hx Shingles, Hx Tuberculosis, Hx Known/ Suspected VRE, Hx Known/Suspected VRSA, History Other Infectious Disease, Traveled Outside the [place] in Last 30 Days - Family History Known Family History: Positive: Hypertension Negative: Cardiac Disease, Diabetes - Social History Alcohol Use: Occasionally Hx Substance Use: No Substance Use Type: Reports: None Hx Tobacco Use: Yes Smoking Status (MU): Former Smoker Type: Cigarettes Amount Used/How Often: 1/2 ppd Review of Systems Positive: Fatigue, Other - "achiness" all over her body. Negative: Fever Negative: Palpitations, Chest Pain Positive: Cough. Negative: Shortness Of Breath Positive: Nausea. Negative: Vomiting, Diarrhea Positive: Other - NEGATIVE: neck pain, neck stiffness POSITIVE: back pain Positive: Headache All Other Systems Reviewed And Are Negative: Yes Physical Exam - Summary Physical Exam Summary: GENERAL: Patient is a well developed and nourished female who is lying comfortable in the stretcher. Patient is not in any acute respiratory distress. HEAD AND FACE: Normocephalic EYES: PERRLA, EOMI x 2. EARS: Hearing grossly intact. MOUTH: Oropharynx within normal limits. Mucous membranes chapped. NECK: Supple, trachea is midline, no adenopathy, no JVD, no carotid bruit. CHEST: Symmetric, no tenderness at palpation LUNGS: Clear to auscultation bilaterally. No wheezing but crackles present in right lung base. CVS: Regular rate and rhythm, S1 and S2 present, no murmurs or gallops appreciated. ABDOMEN: Soft, non-tender. Bowel sounds are normal. No abdominal abnormal pulsations. EXTREMITIES: Full ROM in all major joints, no edema, no cyanosis or clubbing. NEURO: Alert and oriented x 3. No acute neurological deficits. Speech is normal and follows commands. SKIN: Dry and warm Triage Information Reviewed: Yes Vital Signs On Initial Exam: Initial Vitals Temp Pulse Resp BP Pulse Ox 99.4 F 108 18 180/104 93 12/17/17 08:35 12/17/17 08:35 12/17/17 08:35 12/17/17 08:35 12/17/17 08:35 Vital Signs Reviewed: Yes Diagnostics - Vital Signs Vital Signs Temp Pulse Resp BP Pulse Ox 12/17/17 08:35 99.4 F 109 18 180/104 92 - Laboratory Result Diagrams: 12/18/17 05:56 12/18/17 05:56 Lab Statement: Any lab studies that have been ordered have been reviewed, and results considered in the medical decision making process. - Radiology CXR Xray Interpretation: No Acute Changes Radiology Interpretation Completed By: Radiologist - No active cardiopulmonary disease, stable right lung nodule. This report was reviewed by ED physician. - CT CT Head CT Interpretation: No Acute Changes CT Interpretation Completed By: Radiologist - No acute intracranial pathology. This report was reviewed by ED physician Re-Evaluation - Re-Evaluation First Eval Re-Evaluation Time: 11:52 Change: Unchanged - Pt still notes presence of severe LEUNG. Test results were discussed and Pt informed they will likely be admitted to hospital Headache Course/Dx - Course Assessment/Plan: This is scribe Jarrell Amezcua documenting for attending Dr. Christian M.D. Pt is a 62 y/o F BIBA w/ c/o LEUNG onsetting yesterday morning. LEUNG is noted to be across front of head and pain from LEUNG is rated 10/10 in the room. She reports that she feels aches all over her body, is nauseous, is experiencing back pain, has some cough, and does not have the energy to stand up. She notes a Hx of migraines but states current LEUNG is not like previous migraine episodes and pain is worsen. Pt denies neck stiffness, neck pain, SOB, fever, and heart palpitations. Per triage, vomiting and diarrhea are denied as well. Pt notes Hx of HTN but is not on blood thinners. Allergies noted. Physical exam revealed crackles present in right lung base and chapped mucous membranes. In ED, Pt was given Morphine vial: 4 mg IV ED once; Fluids; Ondansetron INJ 4 mg IV ED once. CXR and CT Head were normal. However, due to the continued presence of pain, ill appearance of patient, and white blood cell count of 11.2 it was decided to admit the Pt. Dr. Appiah accepts Pt for admission to [facility], and Pt was given Dx of flu-like symptoms. - Diagnoses Provider Diagnoses: Flu-like symptoms - Physician Notifications Discussed Care Of Patient With: Sarah Appiah Time Discussed With Above Provider: 11:56 Instructed by Provider To: Other - Pt discussed with Dr. Appiah. Dr. Appiah accepts Pt for admission. Discharge - Sign-Out/Discharge Documenting (check all that apply): Patient Departure - admit - Discharge Plan Condition: Fair Disposition: ADMITTED TO [facility] - Billing Disposition and Condition Condition: FAIR Disposition: Admitted to [facility]
[2017-12-17] MEDS ORDERED: NS 0.9% 1000 ML*IV.FLUID IV ONE (09:28)
[2017-12-17] MEDS ORDERED: Metoclopramide IV* 5 MG/ML 2 ML VIAL IV ONE (09:32)
[2017-12-17] MEDS ORDERED: diPHENhydraMINE IV* 25 MG in NS 0.9% 50 ML* 50 ML IVPB ONE (09:32)
--- NOTE | 2017-12-17 10:01 | RAD ---
HISTORY: cough COMPARISONS: January 18, 2017, April 24, 2005 VIEWS: 4: Frontal dual-energy and lateral views of the chest. FINDINGS: CARDIOMEDIASTINAL SILHOUETTE: The cardiomediastinal silhouette is normal. CLARISSE: The clarisse are normal. PLEURA: The costophrenic angles are sharp. No pleural abnormalities are noted. LUNG PARENCHYMA: There is hyperinflation. There is a stable nodule of the right upper lung. ABDOMEN: The upper abdomen is clear. There is no subphrenic gas. BONES AND SOFT TISSUES: Mild degenerative changes are noted. OTHER: None. IMPRESSION: NO ACTIVE CARDIOPULMONARY DISEASE. STABLE RIGHT LUNG NODULE.
--- NOTE | 2017-12-17 10:34 | RAD ---
HISTORY: LEUNG COMPARISONS: None TECHNIQUE: Multiple contiguous axial CT scans were obtained of the head without intravenous contrast. FINDINGS: HEMORRHAGE/INFARCT: There is no hemorrhage or acute infarct. MASSES/SHIFT: There is no mass or shift. EXTRA-AXIAL SPACES: There are no extra-axial fluid collections. SULCI AND VENTRICLES: The sulci and ventricles are normal in size and position for the patient's stated age. CEREBRUM: There is mild hypoattenuation of the periventricular and subcortical white matter. BRAINSTEM: There are no focal parenchymal abnormalities. CEREBELLUM: There are no focal parenchymal abnormalities. VESSELS: The vessels are grossly normal. PARANASAL SINUSES: The paranasal sinuses are clear. ORBITS: The orbits are unremarkable. BONES AND SOFT TISSUE: No bone or soft tissue abnormalities are noted. OTHER: None IMPRESSION: NO ACUTE INTRACRANIAL PATHOLOGY.
[2017-12-17 10:40] LABS: ABS Basophils 0 10^3/ul (0-0.2); ABS Eosinophils 0 10^3/ul (0-0.6); ABS Lymphocytes 0.7 10^3/ul (1.0-4.8); ABS Monocytes 0.2 10^3/ul (0-0.8); ABS Neutrophils 10.2 10^3/ul (1.5-7.7); ABS Nucleated RBC 0 10^3/ul; Eosinophil % 0 % (0-6); Hematocrit 39 % (35-47); Hemoglobin 13.6 g/dl (12.0-16.0); Lymphocyte % 6.1 % (25-47); Mean Corpuscular HGB Conc 35 g/dl (31-36); Mean Corpuscular Hemoglobin 32 pg (27-31); Mean Corpuscular Volume 94 fL (80-97); Mean Platelet Volume 7.8 um3 (7.4-10.4); Nucleated Red Blood Cells % 0.1; Platelet Count 256 10^3/ul (150-450); Red Blood Count 4.18 10^6/ul (4.00-5.40); Red Cell Distribution Width 12 % (10.5-15); White Blood Count 11.2 10^3/ul (3.5-10.8)
[2017-12-17 10:49] LABS: INR 0.93 (0.77-1.02)
[2017-12-17] MEDS ORDERED: Ketorolac INJ* 30 MG/ML 1 ML VIAL IV PUSH ONE (11:15)
[2017-12-17] MEDS ORDERED: Lisinopril TAB* 10 MG PO ONE (11:27)
[2017-12-17] MEDS ORDERED: Morphine VIAL* 4 MG/ML VIAL (1 ml vial) IV ONE (11:58)
[2017-12-17] MEDS ORDERED: Ondansetron INJ* 2 MG/ML VIAL IV ONE (11:59)
[2017-12-17] MEDS ORDERED: Ondansetron INJ* 2 MG/ML VIAL IV PRN (12:03)
[2017-12-17] MEDS ORDERED: Morphine INJ* 2 MG/ML 1 ML CARPUJECT IV PRN (12:03)
[2017-12-17] MEDS ORDERED: Temazepam CAP* 15 MG PO PRN (12:03)
[2017-12-17] MEDS ORDERED: hydrALAZINE IV* 20 MG/ML VIAL IV SLOW PU PRN (12:08)
[2017-12-17] MEDS ORDERED: LORazepam TAB(*) 0.5 MG PO PRN (12:12)
[2017-12-17] MEDS ORDERED: NS 0.9% 1000 ML* 1,000 ML IV SCH (12:15)
[2017-12-17] MEDS ORDERED: Perflutren Lipid Microsphere* 3 ML VIAL ONE (12:46)
[2017-12-17] MEDS ORDERED: Lisinopril TAB* 10 MG PO SCH (13:00)
[2017-12-17] MEDS ORDERED: Albuterol/Ipratropium NEB.SOL* Albuterol 2.5 MG/Ipratropium 0.5 MG 3 ML INH PRN (13:39)
[2017-12-17] MEDS: Metoprolol Tartrate TAB* 25 MG PO SCH ×2 (13:43→20:34)
--- NOTE | 2017-12-17 13:59 | ECHO ---
Patient: STEPH TAVERA [facility] Rec#: [id number] : 1955 Date: 12/17/2017 Age: 62y Height: 160.02 cm / 63.0 in Weight: 70.31 kg / 155.0 lbs Sex: F BSA: 1.74 Room#: [facility] Admit Date#: 12/17/2017 Type: Inpatient Referring: Sarah Appiah MD Reading: Raimundo Blunt MD Chain Splitter: Pgegy Fatima [facility] Transthoracic Echocardiogram Indication: Tachycardia BP: 195/101 HR: 115 Rhythm: Tachycardia Findings History: Headache,tachycardia,HTN,HLD,GERD,former smoker. Technical Comments: The study is technically limited due to the patient's smoking history. Definity used to enhance images. Completed at 1330. Left Ventricle: The left ventricular chamber size is normal. The left ventricle appears hyperdynamic. The estimated ejection fraction is greater than 65%. Normal left ventricular diastolic filling is observed. Left Atrium: The left atrial chamber size is normal. Right Ventricle: The right ventricular cavity size is normal. The right ventricular global systolic function is normal. Right Atrium: The right atrial cavity size is normal. Aortic Valve: The aortic valve is trileaflet. There is no evidence of aortic regurgitation. There is no evidence of aortic stenosis. Mitral Valve: The mitral valve leaflets are mildly thickened. There is no evidence of mitral regurgitation. There is no evidence of mitral stenosis. Tricuspid Valve: The tricuspid valve leaflets are normal. There is no evidence of tricuspid valve regurgitation. There is no tricuspid stenosis. Pulmonic Valve: The pulmonic valve appears normal. There is no evidence of pulmonic regurgitation. There is no pulmonic stenosis. Pericardium: A pericardial fat pad is visualized. Aorta: There is no dilatation of the ascending aorta. There is no dilatation of the aortic arch. There is no dilation of the aortic root. Pulmonary Artery: The main pulmonary artery appears normal. Venous: The venous system is not well visualized. Contrast: Definity was used to optimize study. Intravenous contrast was used to enhance endocardial border definition. Conclusions The study is technically limited due to the patient's smoking history. The left ventricle appears hyperdynamic. The estimated ejection fraction is greater than 65%. No evidence for significant valvular heart disease. No reports of prior studies are offered for comparison. Measurements Name Value Normal Range RVIDd (AP) 2D 2.4 cm (0.9 - 2.6) RVDdMajor (2D) 3.4 cm (2.2 - 4.4) RAd ISD 4CH 4.1 cm (3.4 - 4.9) RA (A4C)W 2.5 cm (2.9 - 4.6) IVSd (2D) 0.9 cm (0.6 - 1) LVPWd (2D) 0.7 cm (0.6 - 1) LVIDd (2D) 4.1 cm (3.6 - 5.4) LVIDs (2D) 1.9 cm - LV FS (2D) 53 % (25 - 45) Aortic Annulus 1.7 cm (1.4 - 2.6) Ao root diameter (2D) 2.9 cm (2.1 - 3.5) Ascending Ao 2.8 cm (2.1 - 3.4) Aortic arch 2.3 cm (1.8 - 3.4) Descending Ao 0.7 cm - LA dimension (AP) 2D 3.1 cm (2.3 - 3.8) LAd ISD 4CH 4.4 cm (2.9 - 5.3) LA ISD 4CH W 2.8 cm (2.5 - 4.5) Name Value Normal Range LA ESV SP 4CH (A/L) 32 ml - LA ESV SP 2CH (A/L) 44 ml - LA ESV BP (A/L) 39 ml - LA ESV BP (A/L) index 22.24 ml/m2 - LA ESV SP 4CH (MOD) 29 ml - LA ESV SP 2CH (MOD) 43 ml - Name Value Normal Range MV E-wave Vmax 1.2 m/sec - MV deceleration time 104 msec - MV A-wave Vmax 1.7 m/sec - MV E:A ratio 0.66 ratio - LV septal e' Vmax 0.09 m/sec - LV lateral e' Vmax 0.13 m/sec - LV E:e' septal ratio 13.33 ratio - LV E:e' lateral ratio 9.23 ratio - Name Value Normal Range AV Vmax 1.9 m/sec - AV VTI 31.8 cm - AV peak gradient 15.66 mmHg - AV mean gradient 7.8 mmHg - LVOT Vmax 1.6 m/sec - LVOT VTI 28.8 cm - LVOT peak gradient 10.24 mmHg - LVOT mean gradient 4.71 mmHg - Name Value Normal Range PV Vmax 0.4 m/sec - PV peak gradient 0.71 mmHg -
[2017-12-17] MEDS: DOXYcycline IV* 100 MG in NS 0.9% 250 ML* 250 ML IVPB SCH (14:14)
[2017-12-17] MEDS: Heparin VIAL(*) 5000 UNITS/ML VIAL (FIVE THOUSAND) SUBCUT SCH ×2 (14:40→20:36)
[2017-12-17] MEDS: Acetaminophen TAB* 325 MG PO PRN ×2 (14:58→20:39)
--- NOTE | 2017-12-17 18:40 | HP ---
CC: Dr. Cabrales * HISTORY AND PHYSICAL: DATE OF ADMISSION: 12/17/17 PRIMARY CARE PROVIDER: Dr. Cabrales. CHIEF COMPLAINT: "Feeling unwell, headache, nausea, chillness." HISTORY OF PRESENT ILLNESS: Jagdeep Ramirez is a 62-year-old female with a history of migraine, hypertension, gastroesophageal reflux disease, hyperlipidemia, and had admission in 2017 for COPD, after which she stopped smoking, who presented today complaining of having chills, body aches, headache, and possible fevers for the past 3 days. The patient is rather a poor historian. Right now says she just received 4 mg of IV morphine for her headache. She stated that she does walk her dog outdoors, but she does not recall any tick bites. She complains of generalized weakness and "flu-like symptoms." The patient is going to be placed in overnight observation with a diagnoses of tachycardia and hypertension. The patient's systolic pressures were in the 180s on admission. PAST MEDICAL HISTORY: 1. Hypertension. 2. Gastroesophageal reflux disease. 3. Hyperlipidemia. 4. COPD. 5. Migraines. MEDICATIONS AT HOME: Include: 1. Ibuprofen 400 to 800 mg every 6 hours p.r.n. 2. Pravachol 40 mg daily. 3. Protonix 40 mg b.i.d. 4. Lisinopril 10 mg daily. ALLERGIES: Include HYDROCODONE causes GI upset. FAMILY HISTORY: Both parents are alive and healthy. SOCIAL HISTORY: The patient lives alone. 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 She quit smoking a year ago and she has a history of 20-pack- year smoking. Denies any alcohol or illicit drug use. She has 2 children and her healthcare proxy is her daughter, Yeimi Zimmerman. REVIEW OF SYSTEMS: Please see history of present illness. All the remaining 12 systems were reviewed with the patient and they are limited due to patient sedation with morphine and otherwise were negative. PHYSICAL EXAMINATION GENERAL: The patient is a very pleasant 62-year-old female, who is in no acute distress. She is mildly lethargic and sedated from morphine, but otherwise easily awakens, alert, and oriented x3. VITAL SIGNS: Blood pressure of 179/100, heart rate of 112 and regular, respiratory rate 16, oxygen saturation 94% on 2 L of oxygen via nasal cannula, temperature 99.4. HEENT: Head: Atraumatic, normocephalic. Eyes: Pupils are equal, reactive to light and accommodation. Oropharynx is clear. Mucosa dry. NECK: Supple. No JVD. No bruits bilaterally. RESPIRATORY: Clear to auscultation bilaterally. CARDIOVASCULAR: Regular rate and rhythm. No murmur. ABDOMEN: Soft, nontender. Bowel sounds are present in all 4 quadrants. EXTREMITIES: There is no edema. Pulses are +2 bilaterally. There is no clubbing or cyanosis. NEUROLOGIC: Speech is clear. Cranial nerves II through XII are grossly intact. Motor strength is 5/5 bilaterally. SKIN: On evaluation of the skin, no ecchymotic areas or rashes noted. PSYCHIATRIC: Mildly sedated from morphine, otherwise oriented x2 with no evidence of anxiety or depression. LABORATORY DATA: Showed white blood cell count 11.2, hemoglobin 13.6, hematocrit 39, and platelets 256. ESR 21. D-dimer was below 200. Sodium was 133, potassium 4.0, chloride 99, carbon dioxide 27, BUN 9, creatinine 0.87. Liver function tests unremarkable. Troponin of 0. C- reactive protein of 1.8. Brain natriuretic peptide was 77. Brain CT, impression: "No acute intracranial pathology." Portable chest x-ray, impression: "No active cardiopulmonary disease. Stable right lung nodule comparing from 2004." The patient's EKG shows sinus tachycardia with no significant ST changes. ASSESSMENT AND PLAN: 1. Generalized weakness, body aches. The patient was also reported to have temperature of 100.4 degrees, hypertension, and tachycardia. At this point, the patient is going to be observed overnight. I suspect the patient may have one of the tick-borne illnesses and tick-borne panel is going to be sent out. For the time being, the patient is going to be treated empirically with doxycycline. 2. In regards to the patient's tachycardia and hypertension and may be due to pain. The patient also appears to be dehydrated. The patient is going to be placed on intravenous hydration. Echocardiogram is going to be obtained for completeness. 3. In regards to the patient's DVT prophylaxis, the patient is going to be placed on heparin subcutaneously. 4. The patient's code status is full and her surrogate is her daughter as mentioned above. TIME SPENT: Approximately 62 minutes was spent on admission of this patient, more than half that time was spent [id number] with the patient during the interview and physical exam. [id number]/[facility] #: [id number] ANA
[2017-12-17] MEDS: Omeprazole CAP* 20 MG PO SCH (20:34)
[2017-12-18] MEDS: DOXYcycline IV* 100 MG in NS 0.9% 250 ML* 250 ML IVPB SCH ×2 (01:22→13:40)
[2017-12-18] MEDS: Heparin VIAL(*) 5000 UNITS/ML VIAL (FIVE THOUSAND) SUBCUT SCH ×2 (05:48→14:23)
[2017-12-18] MEDS: Acetaminophen TAB* 325 MG PO PRN (05:51)
[2017-12-18 06:33] LABS: ABS Basophils 0 10^3/ul (0-0.2); ABS Eosinophils 0 10^3/ul (0-0.6); ABS Lymphocytes 0.9 10^3/ul (1.0-4.8); ABS Monocytes 0.3 10^3/ul (0-0.8); ABS Neutrophils 6.7 10^3/ul (1.5-7.7); ABS Nucleated RBC 0 10^3/ul; Eosinophil % 0 % (0-6); Hematocrit 34 % (35-47); Lymphocyte % 11.8 % (25-47); Mean Corpuscular HGB Conc 35 g/dl (31-36); Mean Corpuscular Hemoglobin 33 pg (27-31); Mean Corpuscular Volume 94 fL (80-97); Mean Platelet Volume 8.3 um3 (7.4-10.4); Nucleated Red Blood Cells % 0.1; Platelet Count 232 10^3/ul (150-450); Red Blood Count 3.66 10^6/ul (4.00-5.40); Red Cell Distribution Width 13 % (10.5-15)
[2017-12-18 06:46] LABS: EGFR Non-African American 79.5 (>60)
[2017-12-18] MEDS: Metoprolol Tartrate TAB* 25 MG PO SCH (08:42)
[2017-12-18] MEDS: Omeprazole CAP* 20 MG PO SCH (08:42)
[2017-12-18] MEDS ORDERED: Morphine VIAL* 4 MG/ML VIAL (1 ml vial) IV PRN (08:42)
[2017-12-18 11:22] VITALS: BP 147/76
[2017-12-18] MEDS ORDERED: Ibuprofen TAB* 800 MG PO ONE (12:21)
[2017-12-18] MEDS ORDERED: DOXYcycline CAP(*) 100 MG PO ONE (13:51)
[2017-12-18 19:55] LABS: B. miyamotoi PCR, B Negative (Negative)
[2017-12-19] MEDS ORDERED: Lisinopril TAB* 10 MG PO SCH (09:00)
--- NOTE | 2017-12-21 03:50 | DS ---
CC: Dr. Cabrales.* DISCHARGE SUMMARY: DATE OF ADMISSION: 12/17/17 DATE OF DISCHARGE: 12/18/17 PRIMARY CARE PROVIDER: Dr. Cabrales. DISCHARGE DIAGNOSES: 1. Myalgias. 2. Headache. 3. Low-grade fevers with workup possible for Lyme disease pending. MEDICATIONS AT DISCHARGE: Include: 1. Ibuprofen 400 to 800 mg on a p.r.n. basis. 2. Lisinopril 10 mg daily. 3. Protonix 40 mg b.i.d. 4. Pravachol 40 mg daily. 5. Doxycycline 100 mg b.i.d. for a total of 2 weeks. LABORATORY DATA AND STUDIES PERFORMED DURING THE HOSPITAL STAY: Include: On ; sodium 133, potassium 4.0, chloride 104, carbon-dioxide 23, BUN 12, creatinine of 0.74. C-reactive protein of 2.11 at discharge. CBC: White blood cell count of 8.0, hemoglobin of 12.0, hematocrit of 34, and platelets of 232. The patient's ESR was noted to be 21 on admission. On admission, the patient's D-dimer was below 200. Patient's transthoracic echocardiogram was performed due to initial hypertension and tachycardia and showed EF of greater than 65% with left ventricle hyperdynamic and no evidence of valvular disease. STUDIES PENDING AT THE TIME OF DICTATION: Included tick borne panel PCR and Lyme disease serology. That should be available in approximately 4 days after discharge. HOSPITALIZATION COURSE: Jagdeep Ramirez is a 62-year-old female who presented to the hospital complaining of diffuse body aches and headache that had been ongoing for 3 days. She was placed on overnight observation. Initially, she was hypertensive and tachycardic but after she received 4 mg of morphine in the emergency department her hypertension and tachycardia resolved. She was observed on overnight telemetry and she felt better at discharge although still complained of some myalgias and mild headache. She never had meningeal signs and no neck pain. She complained of some lumbar strain that happened to her before. The patient also has a history of migraines. The patient stated that she walks her dog in the [place] frequently and due to that Lyme was suspected. She had a temperature of 100.4 degrees on admission and she was placed empirically on doxycycline. Lyme serology and tick-borne panel were still pending at the time of dictation, but she is to continue doxycycline for a total of 2 weeks to complete the course. PHYSICAL EXAMINATION: At discharge, blood pressure of 147/76, heart rate of 72 and regular, respiratory rate 16, oxygen saturation 86% on room air, and temperature 98.2. General: The patient is a pleasant 62-year-old female who is in no acute distress. Alert, awake, and oriented x3. HEENT: Head atraumatic and normocephalic. Eyes; pupils are equal, round, and reactive to light and accommodation. Oropharynx clear. Mucosa moist. Neck: Supple. No JVD, no bruits bilaterally. Cardiovascular: Regular, rate, and rhythm. No murmur. Respiratory: Clear to auscultation bilaterally. Abdomen: Soft and nontender. Bowel sounds are present in all 4 quadrants. Extremities: There is no edema. Pulses are +2 bilaterally. No clubbing or cyanosis. Neuro Evaluation: There is no stiff neck. Speech clear. Cranial nerves II through XII are grossly intact. Motor strength is 5/5 bilaterally. Skin: On evaluation of the skin, no ecchymotic areas or rashes noted. The patient is recommended to follow up with her primary care provider, Dr. Cabrales, in approximately 4 to 7 days. Please note that this is a short summary of the patient's hospital stay. Please refer to further medical records for details. [id number]/[facility] #: [id number] MTDD
== END 2017-12-18 15:30 | disposition home or self-care (01) ==
LOC: ED 08:31 → MEDTELE 12:03
PROVIDERS: ADMIT Internal Medicine; ATTEND Internal Medicine
DX: M79.1 Myalgia (principal); R51 Headache; R50.9 Fever, unspecified; I10 Essential (primary) hypertension; K21.9 Gastro-esophageal reflux disease without esophagitis; E78.5 Hyperlipidemia, unspecified; J44.9 Chronic obstructive pulmonary disease, unspecified; G43.909 Migraine, unspecified, not intractable, without status migrainosus; Z87.891 Personal history of nicotine dependence
CPT/HCPCS: 36415; 70450; 71046; 80048; 80053; 83605; 83880; 84484; 85025; 85379; 85610; 85652; 85730; 86140; 86617; 86618; 87040; 87798; 93005; 93306; 96365; 96375; 99285; A9270-GY; C8929; G0378; J0360; J1200; J1644; J1885; J2270; J2405; J2765